=== PATIENT | male | born 1965 | race American Indian/Alaskan Native ===

== ENCOUNTER 2016-09-25 22:25 | Emergency (ER) | payer SELFPAY ==
[2016-09-25 23:29] VITALS: BP 159/91; PULSE 65; TEMP 97.4; O2SAT 99
--- NOTE | 2016-09-25 23:52 | C.PDOC ---
History Of Present Illness 51 year old patient presents to the ED complaining of nasal congestion for the past 2 weeks. Patient reports his symptoms recur annually due to allergies and sinusitis. Patient usually has a prescription for a nasal spray from his PMD. He has no PMD at this time which prompted his visit. Patient denies fever, chills, shortness of breath, cough, or any OTC medications. Time Seen by Provider: 09/25/16 23:32 Chief Complaint (Nursing): Cough, Cold, Congestion History Per: Patient History/Exam Limitations: no limitations Onset/Duration Of Symptoms: Other (2 weeks) Current Symptoms Are (Timing): Still Present Location Of Pain: Sinus/es, Other Sick Contacts (Context): None Associated Symptoms: Nasal Congestion Ear Symptoms: Bilateral: None Severity: Mild Pain Scale Rating Of: 3 Recent travel outside of the [place]: No Past Medical History Reviewed: Historical Data, Nursing Documentation, Vital Signs Vital Signs: Last Vital Signs Temp 97.4 F L 09/25/16 23:22 Pulse 65 09/25/16 23:22 Resp 20 09/25/16 23:55 BP 159/91 H 09/25/16 23:22 Pulse Ox 99 09/25/16 23:52 Family History: States: Unknown Family Hx - Social History Hx Tobacco Use: Yes Hx Alcohol Use: No Hx Substance Use: No - Immunization History Hx Tetanus Toxoid Vaccination: No Hx Influenza Vaccination: Yes Hx Pneumococcal Vaccination: Yes Review Of Systems Except As Marked, All Systems Reviewed And Found Negative. Constitutional: Negative for: Fever, Chills ENT: Positive for: Nose Discharge, Nose Congestion Respiratory: Negative for: Cough, Shortness of Breath Physical Exam - Physical Exam Appears: Non-toxic, No Acute Distress Skin: Warm, Dry Head: Atraumatic, Normacephalic Eye(s): bilateral: PERRL, EOMI Ear(s): Bilateral: Normal Nose: Discharge (clear), Other (moderately enlarged nasal turbinates) Throat: Normal, No Erythema, No Exudate Neck: Normal ROM, Supple Cardiovascular: Rhythm Regular Respiratory: Normal Breath Sounds, No Rales, No Rhonchi, No Wheezing ED Course And Treatment O2 Sat by Pulse Oximetry: 99 (RA) Pulse Ox Interpretation: Normal Progress Note: Patient is resting comfortably with no wheezing, or retractions. Oxygen saturation is at 99%. Patient is alert and oriented x3. Patient was advised to follow up with physician in 1-2 days. Return if symptoms worsen. 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 - Scribe Statement The provider has reviewed the documentation as recorded by the Scribe Rbea Dalal All medical record entries made by the Scribe were at my direction and personally dictated by me. I have reviewed the chart and agree that the record accurately reflects my personal performance of the history, physical exam, medical decision making, and the department course for this patient. I have also personally directed, reviewed, and agree with the discharge instructions and disposition.
[2016-09-25 23:56] VITALS: RESP 20
== END 2016-09-25 23:55 | disposition home or self-care (01) ==
LOC: C.ER 22:25
DX: J30.9 Allergic rhinitis, unspecified (principal); Z72.0 Tobacco use

== ENCOUNTER 2017-03-04 15:22 | Emergency (ER) | payer OTHER ==
[2017-03-04 15:28] VITALS: PULSE 65; RESP 18; TEMP 98.7; O2SAT 98
[2017-03-04] MEDS ORDERED: Lidocaine 5% Patch TD STA (15:52)
[2017-03-04] MEDS ORDERED: Lidocaine 5% Patch TD ONE (16:08)
--- NOTE | 2017-03-04 16:30 | C.PDOC ---
History Of Present Illness 51 y/o male, who presents to the ED complaining of back pain that radiates down his right leg for the past few days. Patient reports he has also developed bilateral foot pain that has been intermittent for the past month. He has previously been here and was given medication. He notes not taking medication for this current back pain. No other complaints were made. Time Seen by Provider: 03/04/17 15:41 Chief Complaint (Nursing): Back Pain History Per: Patient History/Exam Limitations: no limitations Onset/Duration Of Symptoms: Days (few days) Current Symptoms Are (Timing): Still Present Past Medical History Reviewed: Historical Data, Nursing Documentation, Vital Signs Vital Signs: Last Vital Signs Temp 98.7 F 03/04/17 15:24 Pulse 65 03/04/17 16:39 Resp 18 03/04/17 16:39 BP 142/78 03/04/17 16:39 Pulse Ox 98 03/04/17 17:57 - Medical History PMH: No Chronic Diseases Family History: States: Unknown Family Hx - Social History Hx Tobacco Use: Yes Hx Alcohol Use: No Hx Substance Use: No - Immunization History Hx Tetanus Toxoid Vaccination: No Hx Influenza Vaccination: Yes Hx Pneumococcal Vaccination: Yes Review Of Systems Constitutional: Negative for: Fever Cardiovascular: Negative for: Chest Pain Respiratory: Negative for: Shortness of Breath Gastrointestinal: Negative for: Abdominal Pain Musculoskeletal: Positive for: Back Pain (radiates down to his right leg), Foot Pain (bilateral foot pain ) Neurological: Negative for: Headache Physical Exam - Physical Exam Appears: Well, Non-toxic, No Acute Distress Skin: Warm, Dry, No Diaphoretic, No Pale Head: Atraumatic, Normacephalic Eye(s): bilateral: Normal Inspection Neck: Normal ROM Chest: Symmetrical Cardiovascular: Rhythm Regular, No Murmur Respiratory: Normal Breath Sounds, No Wheezing Back: No CVA Tenderness, No Vertebral Tenderness, No Decreased ROM, Paraspinal Tenderness (paralumbar tenderness) Extremity: Normal ROM (x4), No Tenderness, No Pedal Edema, No Calf Tenderness, No Deformity, No Swelling, Other (no ulcers to feet) Neurological/Psych: Oriented x3, Normal Speech, Normal Motor, Normal Sensation Gait: Steady ED Course And Treatment O2 Sat by Pulse Oximetry: 98 (room air) Pulse Ox Interpretation: Normal Medical Decision Making Medical Decision Makin03/04/2017 Impression: back and foot pain Plan: -- Flexeril, Lidoderm, and Motrin -- Reassess and disposition Re-evaluation: On previous record visit patient was diagnosed with tinea pedis. Discussed plan with patient who understands results and is agreeable with plan for discharge with Rx. All questions answered. Disposition Counseled Patient/Family Regarding: Need For Followup, Rx Given - Disposition Referrals: [facility] [Outside] [facility] [Outside] Disposition: HOME/ ROUTINE Disposition Time: 16:29 Condition: STABLE Additional Instructions: Follow up with your primary medical doctor or clinic in 2-5 days for further evaluation. Take medications as prescribed. Return to the emergency department at any time if symptoms persist or worsen. Prescriptions: Cyclobenzaprine [Cyclobenzaprine HCl] 10 mg PO TID #21 tab Ibuprofen [Motrin] 600 mg PO Q8 #30 tab Instructions: Sciatica (ED) Forms: [employer] (Algerian) - POA Present On Arrival: None - Clinical Impression Clinical Impression: Sciatica, Bilateral foot pain - Scribe Statement The provider has reviewed the documentation as recorded by the Scribe 03/04/2017 Scribe Attestation: Shira Bailey MD Scribe Attestation: All medical record entries made by the Scribe were at my direction and personally dictated by me. I have reviewed the chart and agree that the record accurately reflects my personal performance of the history, physical exam, medical decision making, and the department course for this patient. I have also personally directed, reviewed, and agree with the discharge instructions and disposition.
[2017-03-04 16:40] VITALS: BP 142/78
== END 2017-03-04 16:42 | disposition home or self-care (01) ==
LOC: C.ER 15:22
DX: M54.30 Sciatica, unspecified side (principal); M79.672 Pain in left foot; M79.671 Pain in right foot

== ENCOUNTER 2017-08-11 20:03 | Emergency (ER) | payer OTHER ==
--- NOTE | 2017-08-11 20:34 | C.PDOC ---
History Of Present Illness 51 year old male presents to the ED complaining of right lower back pain that radiates down his right leg for the past 2 weeks. Patient reports today he developed fever and also feeling generalized body aches. Denies ear pain, sore throat, cough, headache, abdominal pain, vomiting or diarrhea. Time Seen by Provider: 08/11/17 20:24 Chief Complaint (Nursing): Back Pain History Per: Patient History/Exam Limitations: no limitations Past Medical History Reviewed: Historical Data, Nursing Documentation, Vital Signs Vital Signs: Last Vital Signs Temp 99.3 F 08/11/17 21:21 Pulse 71 08/11/17 21:21 Resp 20 08/11/17 21:21 BP 123/74 08/11/17 21:21 Pulse Ox 100 08/11/17 21:25 - Medical History PMH: Denies: Chronic Kidney Disease Family History: States: No Known Family Hx - Social History Hx Tobacco Use: Yes Hx Alcohol Use: Yes Hx Substance Use: No - Immunization History Hx Tetanus Toxoid Vaccination: No Hx Influenza Vaccination: No Hx Pneumococcal Vaccination: No Review Of Systems Constitutional: Positive for: Fever Genitourinary: Negative for: Incontinence Musculoskeletal: Positive for: Back Pain, Leg Pain Neurological: Negative for: Weakness, Numbness Physical Exam - Physical Exam Appears: Well, Non-toxic, No Acute Distress Skin: Normal Color, Warm, Dry, No Rash Head: Atraumatic, Normacephalic Eye(s): bilateral: Normal Inspection, EOMI Ear(s): Bilateral: Normal Nose: Normal Oral Mucosa: Moist Neck: Normal ROM, Supple Chest: Symmetrical Cardiovascular: Rhythm Regular, No Murmur Respiratory: Normal Breath Sounds, No Accessory Muscle Use, No Wheezing Gastrointestinal/Abdominal: Soft, No Tenderness Back: Normal Inspection, No CVA Tenderness, No Vertebral Tenderness, Paraspinal Tenderness (Lumbar) Extremity: Bilateral: Atraumatic, Normal ROM Neurological/Psych: Oriented x3, Normal Speech Gait: Steady ED Course And Treatment O2 Sat by Pulse Oximetry: 100 Medical Decision Making Medical Decision Making: Impression: sciatica, fever Plan: * Motrin * Flexeril * UA Progress: UA reviewed and no UTI Patient reevaluated and reports feeling better. Patient appears non-toxic and in no distress. Rx given. Patient advised to rest, drink fluids and take medications for supportive treatment. Patient stable for discharge and given follow up instructions. Disposition Counseled Patient/Family Regarding: Diagnosis, Need For Followup, Rx Given - Disposition Referrals: [facility] [Outside] [facility] [Outside] Disposition: HOME/ ROUTINE Disposition Time: 21:07 Condition: STABLE Additional Instructions: You have influenza. Take Tamiflu twice a day for 5 days. Take Tylenol or Motrin alternating every 4-6 hours for Fever 100.4F or higher. Rest and drink plenty of fluids. Try symptomatic relief. Symptoms can last 7-10 days. Follow up with your primary medical doctor or clinic in 2-5 days for further evaluation. Return to the emergency department at any time if symptoms persist or worsen. Prescriptions: Cyclobenzaprine [Cyclobenzaprine HCl] 10 mg PO TID #21 tab Ibuprofen [Motrin] 600 mg PO Q8 #30 tab Oseltamivir [Tamiflu] 75 mg PO BID #10 cap Instructions: Sciatica, Flu Forms: [employer] (Setswana) - POA Present On Arrival: None - Clinical Impression Clinical Impression: Sciatica, Flu-like symptoms - Scribe Statement The provider has reviewed the documentation as recorded by the Scribe (Stewart Alaniz) All medical record entries made by the Scribe were at my direction and personally dictated by me. I have reviewed the chart and agree that the record accurately reflects my personal performance of the history, physical exam, medical decision making, and the department course for this patient. I have also personally directed, reviewed, and agree with the discharge instructions and disposition.
[2017-08-11 20:58] LABS: SQUAMOUS EPITHIAL 1 /hpf (0-5); URINE BACTERIA OCC (<OCC); URINE BILIRUBIN NEGATIVE (NEGATIVE); URINE BLOOD 3+ (NEGATIVE); URINE CLARITY Hazy (Clear); URINE COLOR Yellow (YELLOW); URINE GLUCOSE (UA) NORMAL (Normal); URINE LEUKOCYTE ESTERASE NEG Leu/uL (Negative); URINE NITRATE NEGATIVE (NEGATIVE); URINE PROTEIN NEGATIVE (NEGATIVE); URINE UROBILINOGEN NORMAL mg/dL (0.2-1.0)
[2017-08-11 21:24] VITALS: BP 123/74; PULSE 71; RESP 20; TEMP 99.3
[2017-08-11 21:25] VITALS: O2SAT 100
== END 2017-08-11 21:24 | disposition home or self-care (01) ==
LOC: C.ER 20:03
DX: J11.1 Influenza due to unidentified influenza virus with other respiratory manifestations (principal); M54.30 Sciatica, unspecified side; Z87.891 Personal history of nicotine dependence

== ENCOUNTER 2017-08-25 22:12 | Emergency (ER) | payer OTHER ==
[2017-08-25 22:20] VITALS: BP 153/85; PULSE 83; RESP 18; TEMP 98.4; O2SAT 98
--- NOTE | 2017-08-25 22:38 | C.PDOC ---
History Of Present Illness Patient c/o pain and swelling of the right 1st MCP joint area x 1 day. Patient sts last night he ate pulido and rice. No prior h/o arthritis. Time Seen by Provider: 08/25/17 22:26 Chief Complaint (Nursing): Finger,Hand,&Wrist History Per: Patient History/Exam Limitations: no limitations Onset/Duration Of Symptoms: Days (1) Current Symptoms Are (Timing): Still Present Quality: Aching Severity: Moderate Pain Scale Rating Of: 6 Past Medical History Reviewed: Historical Data, Nursing Documentation, Vital Signs Vital Signs: Last Vital Signs Temp 98.4 F 08/25/17 22:16 Pulse 83 08/25/17 22:16 Resp 18 08/25/17 22:16 BP 153/85 H 08/25/17 22:16 Pulse Ox 98 08/25/17 23:54 - Medical History PMH: Denies: Chronic Kidney Disease Family History: States: Unknown Family Hx - Social History Hx Tobacco Use: Yes Hx Alcohol Use: Yes Hx Substance Use: No - Immunization History Hx Tetanus Toxoid Vaccination: No Hx Influenza Vaccination: No Hx Pneumococcal Vaccination: No Review Of Systems Except As Marked, All Systems Reviewed And Found Negative. Physical Exam - Physical Exam Appears: Well, Non-toxic, No Acute Distress Skin: Normal Color, Warm, No Rash Head: Atraumatic, Normacephalic Eye(s): bilateral: Normal Inspection Extremity: Swelling (right 1st MCP with swelling, erythema and warmth, no open wounds, FROm with minimal pain) Neurological/Psych: Oriented x3, Normal Speech, Normal Cognition ED Course And Treatment O2 Sat by Pulse Oximetry: 98 - Other Rad Right hand xray X-Ray: Interpreted by Me Interpretation: No acute changes Progress Note: Plan: Hand xray, analgesia. Clinical presentation is consistant with acute gouty arthritis. Patient was d/c home om po meds with Clinic follow up. Disposition - Disposition Referrals: at [facility] [Outside] Disposition: HOME/ ROUTINE Disposition Time: 23:51 Condition: STABLE Additional Instructions: Follow up in clinic within 1-2 days. Return to ED if feel worse. Prescriptions: Colchicine [Colcrys] 0.6 mg PO BID #6 tablet Indomethacin [Indocin] 25 mg PO TID #30 cap Famotidine [Pepcid] 20 mg PO BID #40 tab Instructions: Gout (DC), Low Purine Diet Forms: [facility] (South Sudanese) - Clinical Impression Clinical Impression: Gouty arthritis
--- NOTE | 2017-08-26 09:33 | RAD ---
PROCEDURE: Right Hand Radiographs. HISTORY: right 1st MCP atraumatic swelling/pain COMPARISON: None. FINDINGS: BONES: Normal. No fracture. JOINTS: Normal. No osteoarthritic changes. SOFT TISSUES: Normal. OTHER FINDINGS: None. IMPRESSION: Normal right hand radiographs.
== END 2017-08-25 23:58 | disposition home or self-care (01) ==
LOC: C.ER 22:12
DX: M10.9 Gout, unspecified (principal)

== ENCOUNTER 2017-09-22 13:00 | Emergency (ER) | payer OTHER ==
[2017-09-22 13:05] VITALS: BMI 28.6
[2017-09-22 13:06] VITALS: BP 132/83; PULSE 74; RESP 18; TEMP 98.1; O2SAT 98
--- NOTE | 2017-09-22 13:35 | C.PDOC ---
History Of Present Illness 52 year old male presents to the emergency department following a new onset of back pain in his right lower back persisting for the past two to three weeks. 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 Patient reports that his pain is normally worse while he is at work , but subsides after resting and taking a shower, however he reports today he is experiencing worse pain than ever. His pain is not improving with his usual methods. Patient reports that the pain is worse with sitting and standing up, radiating to the front of his thigh. Patient denies weakness or numbness, trauma , or trying any pain medications. NEW ONSET R BACK PAIN X 2-3 WEEKS. 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 NO TRAUMA. PS NORMALLY WORSE @ WORK, BUT RELIEVES AFTER REST AND SHOWER. TODAY WORSE THAN USUAL, NO IMPROVE W USUAL METHODS. R LOWER BACK, WORSE W SITTING AND STANDING UP. OFF RADIATION FRONT OF THIGH. NO ASSOC WEAK/NUMB, OTHER SX. NO PAIN MEDS TRIED EXAM NAD NONTOXIC BACK AROM WO DIFF. REPRODUC PAIN W FULL EXTENSION. NONTEND. NEURO NO FOCAL DEF GAIT WNL SKIN NO LESIONS REMAINDER NEG Time Seen by Provider: 09/22/17 13:22 Chief Complaint (Nursing): Back Pain History Per: Patient Onset/Duration Of Symptoms: Days (2-3 weeks) Current Symptoms Are (Timing): Worse Quality Of Discomfort: "Pain" Associated Symptoms: denies: None Exacerbating Factor(s): Sitting, Standing Past Medical History Reviewed: Historical Data, Nursing Documentation, Vital Signs Vital Signs: Last Vital Signs Temp 98.1 F 09/22/17 13:05 Pulse 74 09/22/17 13:05 Resp 18 09/22/17 13:05 BP 132/83 09/22/17 13:05 Pulse Ox 98 09/22/17 13:48 - Medical History PMH: No Chronic Diseases Denies: Chronic Kidney Disease Surgical History: No Surg Hx Family History: States: No Known Family Hx - Social History Hx Tobacco Use: Yes Hx Alcohol Use: Yes Hx Substance Use: No - Immunization History Hx Tetanus Toxoid Vaccination: No Hx Influenza Vaccination: Yes Hx Pneumococcal Vaccination: No Review Of Systems Except As Marked, All Systems Reviewed And Found Negative. Musculoskeletal: Positive for: Back Pain, Leg Pain (pain radiates to his front thigh) Neurological: Negative for: Weakness, Numbness Physical Exam - Physical Exam Appears: Non-toxic, No Acute Distress Skin: No Other (lesions) Cardiovascular: Rhythm Regular Respiratory: Other (NARD) Back: Other (Active range of motion without difficulty. Reproducible pain with full extension. Nontender. ) Neurological/Psych: Other (no focal deficits. ) Gait: Other (within normal limits) ED Course And Treatment O2 Sat by Pulse Oximetry: 98 (RA) Pulse Ox Interpretation: Normal - Other Rad LS SPINE X-Ray: Interpreted by Me (NEG) Progress Note: Plan: Tylenol 975mg PO. Flexeril 10mg PO. Decadron 10mg PO. Neurontin 300mg PO. Motrin 600mg PO. LS Spine X-Ray AP/LAT Disposition Counseled Patient/Family Regarding: Studies Performed, Diagnosis, Need For Followup, Rx Given - Disposition Referrals: [facility] [Outside] [facility] [Outside] Disposition: HOME/ ROUTINE Disposition Time: 13:57 Condition: IMPROVED Prescriptions: Acetaminophen [Tylenol Extra Strength] 2 tab PO Q6 #30 tablet Cyclobenzaprine [Flexeril] 10 mg PO TID #15 tab Gabapentin [Neurontin] 300 mg PO TID #30 cap Ibuprofen [Motrin] 600 mg PO Q6 #30 tab Instructions: Sciatica (DC) Forms: [facility] (Guatemalan), Work Excuse - Clinical Impression Clinical Impression: Sciatica - Scribe Statement The provider has reviewed the documentation as recorded by the Scribe (Chris King) Provider Attestation: All medical record entries made by the Scribe were at my direction and personally dictated by me. I have reviewed the chart and agree that the record accurately reflects my personal performance of the history, physical exam, medical decision making, and the department course for this patient. I have also personally directed, reviewed, and agree with the discharge instructions and disposition.
--- NOTE | 2017-09-22 13:59 | RAD ---
PROCEDURE: Radiographs of the Lumbar Spine. HISTORY: R LOWER BACK PAIN COMPARISON: No prior. FINDINGS: BONES: There are moderate to severely endplate and disc is space degenerative changes more prominent at L4-L5 associated with narrowing of the disc is space and osteophyte formation. DISC SPACES: There is narrowing of the L4-L5 disc is space. OTHER FINDINGS: None. IMPRESSION: Moderate to mildly severe degenerative changes more prominent at L4-L5.
== END 2017-09-22 14:03 | disposition home or self-care (01) ==
LOC: C.ER 13:00
DX: M54.30 Sciatica, unspecified side (principal)
CPT/HCPCS: 72100; 99284; J8540

== ENCOUNTER 2017-12-21 21:40 | Emergency (ER) | payer OTHER ==
[2017-12-21 21:41] VITALS: BMI 28.6
[2017-12-21 21:52] VITALS: BP 162/90; PULSE 88; TEMP 97.9; O2SAT 97
--- NOTE | 2017-12-21 22:26 | C.PDOC ---
History Of Present Illness 52 year old male with a Hx of seasonal allergies presents to the ER with a complaint of moderate congestion and frontal headache. Patient normally uses nasal spray and decongestants, however, he states they provide no relief. Denies fever, sore throat, or SOB. Time Seen by Provider: 12/21/17 21:56 Chief Complaint (Nursing): ENT Problem History Per: Patient History/Exam Limitations: None Onset/Duration Of Symptoms: Days Current Symptoms Are (Timing): Still Present Anticoagulant/Antiplatlet Use?: No Past Medical History Reviewed: Historical Data, Nursing Documentation, Vital Signs Vital Signs: Last Vital Signs Temp 97.9 F 12/21/17 21:50 Pulse 88 12/21/17 21:50 Resp 20 12/21/17 22:37 BP 162/90 H 12/21/17 21:50 Pulse Ox 97 12/21/17 22:25 Surgical History: No Surg Hx Family History: States: Unknown Family Hx - Social History Hx Tobacco Use: Yes Hx Alcohol Use: Yes Hx Substance Use: No - Immunization History Hx Tetanus Toxoid Vaccination: No Hx Influenza Vaccination: Yes Hx Pneumococcal Vaccination: No Review Of Systems Constitutional: Negative for: Fever ENT: Positive for: Nose Congestion. Negative for: Throat Pain Respiratory: Negative for: Shortness of Breath Neurological: Positive for: Headache Physical Exam - Physical Exam Appears: Non-toxic Skin: Normal Color, Warm, Dry Head: Atraumatic, Normacephalic, Tenderness (Facial sinus), No Swelling Eye(s): bilateral: Normal Inspection Ear(s): Bilateral: Normal Nose: Other (Moderate enlarged nasal turbinates) Oral Mucosa: Moist Throat: Normal, No Erythema, No Exudate Neck: Normal, Supple Chest: Symmetrical, No Tenderness Cardiovascular: Rhythm Regular Respiratory: Normal Breath Sounds, No Rales, No Rhonchi, No Wheezing Extremity: Normal ROM (x4) Neurological/Psych: Oriented x3, Normal Speech ED Course And Treatment O2 Sat by Pulse Oximetry: 97 (Room air) Pulse Ox Interpretation: Normal Progress Note: Benadryl administered. Patient reports improvement of headache and congestion, he is resting comfortably in no acute distress, vitals are stable, will discharge home with Rx and instructions to follow up with PMD. Disposition Counseled Patient/Family Regarding: Diagnosis, Need For Followup, Rx Given - Disposition Referrals: Radha Monroe MD [Staff Provider] - Disposition: HOME/ ROUTINE Disposition Time: 22:23 Condition: STABLE Additional Instructions: Take all meds as prescribed Follow up in clinic Return to ER if worse Prescriptions: Cetirizine HCl [Zyrtec] 10 mg PO DAILY #20 capsule Ibuprofen [Motrin] 600 mg PO Q6H #20 tab Mometasone Furoate [Nasonex] 2 spray NS DAILY #1 bottle Instructions: Seasonal Allergies (DC) Forms: [employer] (Syriac) - Clinical Impression Clinical Impression: Allergic rhinitis - 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 - Scribe Statement The provider has reviewed the documentation as recorded by the Scribxiao Long All medical record entries made by the Jo Annibxiao were at my direction and personally dictated by me. I have reviewed the chart and agree that the record accurately reflects my personal performance of the history, physical exam, medical decision making, and the department course for this patient. I have also personally directed, reviewed, and agree with the discharge instructions and disposition.
[2017-12-21 22:38] VITALS: RESP 20
== END 2017-12-21 22:37 | disposition home or self-care (01) ==
LOC: C.ER 21:40
DX: J30.9 Allergic rhinitis, unspecified (principal)

== ENCOUNTER 2018-04-13 20:54 | Emergency (ER) | payer OTHER ==
[2018-04-13 20:55] VITALS: BMI 28.6
[2018-04-13 21:16] VITALS: BP 155/90; PULSE 58; RESP 20; TEMP 98.7; O2SAT 100
[2018-04-13] MEDS ORDERED: Naproxen 550 mg Tab PO STA (21:34)
[2018-04-13] MEDS ORDERED: Naproxen 550 mg Tab PO ONE (21:41)
--- NOTE | 2018-04-13 21:56 | C.PDOC ---
History Of Present Illness 52 y/o male pt presents to the ER for c/o right knee swelling for x3 days. Pt reports he was pushing a hand truck and his "knee touched it". He started to have pain later that night , the pain is worse with movement. Pt did not take any pain medication. Pt denies SOB, fever, vomiting, change in sensation and calf swelling. Time Seen by Provider: 04/13/18 21:18 Chief Complaint (Nursing): Lower Extremity Problem/Injury History Per: Patient History/Exam Limitations: no limitations Onset/Duration Of Symptoms: Days (x3) Current Symptoms Are (Timing): Still Present Past Medical History Reviewed: Historical Data, Nursing Documentation, Vital Signs Vital Signs: Last Vital Signs Temp 98.7 F 04/13/18 21:10 Pulse 58 L 04/13/18 21:10 Resp 20 04/13/18 21:10 BP 155/90 H 04/13/18 21:10 Pulse Ox 100 04/13/18 21:10 Family History: States: Unknown Family Hx - Social History Hx Tobacco Use: Yes Hx Alcohol Use: No Hx Substance Use: No - Immunization History Hx Tetanus Toxoid Vaccination: No Hx Influenza Vaccination: Yes Hx Pneumococcal Vaccination: No Review Of Systems Constitutional: Negative for: Fever Respiratory: Negative for: Shortness of Breath Gastrointestinal: Negative for: Vomiting Musculoskeletal: Negative for: Other (leg swelling/deformity; calf swelling) Neurological: Positive for: Other (right knee swelling; no change in sensation of right knee) Physical Exam - Physical Exam Appears: Well, Non-toxic, No Acute Distress Skin: Normal Color, Warm, Dry Head: Atraumatic, Normacephalic Eye(s): bilateral: Normal Inspection, EOMI Nose: Normal Oral Mucosa: Moist Neck: Normal ROM, Supple Chest: Symmetrical Respiratory: No Accessory Muscle Use Extremity: Normal ROM, Tenderness (to medial aspect of rigth knee ), No Calf Tenderness, Capillary Refill (<2 sec), No Deformity, Swelling (mild ) Extremity: Bilateral: Normal Color And Temperature Pulses: Right Femoral: Normal, Right Dorsalis Pedis: Normal Neurological/Psych: Oriented x3, Normal Speech, Normal Cognition, Normal Motor, Normal Sensation ED Course And Treatment O2 Sat by Pulse Oximetry: 100 (RA) Pulse Ox Interpretation: Normal - Other Rad Right knee X-Ray: Interpreted by Me, Viewed By Me Interpretation: no fx. no dislocation Progress Note: Plans: -- Right Knee XR. -- naproxen. Reassess: Patient is resting comfortably. Tolerating PO. A knee brace was applied by RN. Patient instructed to f/u by orthropedics in 1-2 days. Disposition - Disposition Referrals: Mo Hanna III, MD [Staff Provider] - Disposition: HOME/ ROUTINE Disposition Time: 22:11 Condition: STABLE Additional Instructions: Rest, ice and elevate the area. Follow up with the orthopedist in 1-2 days. 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 - Scribe Statement The provider has reviewed the documentation as recorded by the Kalina Patel Do All medical record entries made by the Scribe were at my direction and personally dictated by me. I have reviewed the chart and agree that the record accurately reflects my personal performance of the history, physical exam, medical decision making, and the department course for this patient. I have also personally directed, reviewed, and agree with the discharge instructions and disposition.
--- NOTE | 2018-04-14 09:24 | RAD ---
Date of service: 04/13/2018 PROCEDURE: Right Knee Radiographs. HISTORY: trauma COMPARISON: None. FINDINGS: BONES: No acute fracture or destructive bony lesion identified. JOINTS: No subluxation or dislocation identified. Limited osteophyte development is seen the patellofemoral and medial femorotibial compartment compatible with limited degenerative joint disease. JOINT EFFUSION: None. OTHER FINDINGS: None. IMPRESSION: No acute fracture or destructive bony lesion identified. 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
== END 2018-04-13 22:26 | disposition home or self-care (01) ==
LOC: C.ER 20:54
DX: M25.561 Pain in right knee (principal)